=== PATIENT | female | born 1955 | race Caucasian/White ===

== ENCOUNTER 2017-12-05 08:54 | Day surgery (SDC) | payer MEDICARE, MEDICAID ==
[~2017-12-05] VITALS: Ht 172.7 cm; Wt 73.3 kg
[~2017-12-05 08:54] MED LIST: ARIP5TAB20 PO; ASPI81TA53 PO; BUDE10.2 INH; BUSP10TA3 PO; COL100C PO; ESCI10TA54 PO; LEVO75TA7 PO; METF500T6 PO; METO-395 PO; OMEP-50 PO; PER10325T PO; ZOLP10TA5 PO
[2017-12-05 09:12] VITALS: BP 122/59
[2017-12-05] MEDS ORDERED: normal saline 1000ml 1,000 ML IV PRN (09:20)
[2017-12-05 09:41] LABS: BASOPHILS # (AUTO) 0.1 X10'3 (0-0.2); BASOPHILS % (AUTO) 0.5 % (0-1); EOSINOPHILS # (AUTO) 0.3 X10'3 (0-0.9); EOSINOPHILS % (AUTO) 2.1 % (0-6); HEMATOCRIT 38.1 % (35.0-45.0); HEMOGLOBIN 12.8 g/dl (12.0-16.0); LYMPHOCYTES # (AUTO) 3.5 X10'3 (1.1-4.8); LYMPHOCYTES % (AUTO) 25.5 % (21-51); MEAN CORPUSCULAR HGB CONC 33.6 % (33.0-36.5); MEAN CORPUSCULAR VOLUME 86.3 FL (78-98); MEAN PLATELET VOLUME 7.5 FL (7.4-10.4); MONOCYTES # (AUTO) 1.1 X10'3 (0-0.9); MONOCYTES % (AUTO) 7.9 % (2-12); NEUTROPHILS # (AUTO) 8.9 X10'3 (1.8-7.7); PLATELET COUNT 579 X10'3 (140-440); RED BLOOD COUNT 4.41 X10'6 (4.20-5.60); RED CELL DISTRIBUTION WIDTH 16.6 % (11.5-14.5); WHITE BLOOD COUNT 13.9 X10'3 (4.5-11.0)
[2017-12-05] MEDS ORDERED: ARIP5TAB4 PO (10:11)
[2017-12-05] MEDS ORDERED: LIDOcaine 1%/PF 5ML 10 MG/ML VIAL SQ ONE (10:30)
[2017-12-05] MEDS ORDERED: midazolam 2 mg/2 ml injection IV PRN (10:30)
[2017-12-05] MEDS ORDERED: heparin sodium, porcine/PF 100unit/ml 5ML syringe ICATH ONE (10:30)
[2017-12-05] MEDS ORDERED: fentaNYL/PF 50MCG/1 ML 2ML syringe IV PRN (10:30)
[2017-12-05] MEDS ORDERED: heparin sodium, porcine/PF 100unit/ml 5ML syringe ONE (10:37)
[2017-12-05] MEDS ORDERED: midazolam 2 mg/2 ml injection ONE (10:37)
[2017-12-05] MEDS ORDERED: fentaNYL/PF 50MCG/1 ML 2ML syringe ONE (10:37)
[2017-12-05 11:25] VITALS: BP 129/63
[2017-12-05 11:30] VITALS: BP 91/45
[2017-12-05 11:45] VITALS: BP 97/52
[2017-12-05 12:00] VITALS: BP 129/65
[2017-12-05 12:15] VITALS: BP 129/65
== END 2017-12-05 12:35 | disposition home or self-care (01) ==
LOC: SSTAY O 08:54
PROVIDERS: ATTEND Radiology Diagnostic Radiology
DX: C34.92 Malignant neoplasm of unspecified part of left bronchus or lung (principal); J44.9 Chronic obstructive pulmonary disease, unspecified; F41.8 Other specified anxiety disorders; K21.9 Gastro-esophageal reflux disease without esophagitis; I25.10 Atherosclerotic heart disease of native coronary artery without angina pectoris; E11.9 Type 2 diabetes mellitus without complications; E03.9 Hypothyroidism, unspecified; F17.210 Nicotine dependence, cigarettes, uncomplicated; G47.33 Obstructive sleep apnea (adult) (pediatric); M19.90 Unspecified osteoarthritis, unspecified site; J96.10 Chronic respiratory failure, unspecified whether with hypoxia or hypercapnia; Z72.89 Other problems related to lifestyle; Z86.14 Personal history of Methicillin resistant Staphylococcus aureus infection; Z93.0 Tracheostomy status; Z92.21 Personal history of antineoplastic chemotherapy; Z90.89 Acquired absence of other organs; Z90.81 Acquired absence of spleen; Z90.710 Acquired absence of both cervix and uterus; Z90.49 Acquired absence of other specified parts of digestive tract; Z88.5 Allergy status to narcotic agent; Z79.84 Long term (current) use of oral hypoglycemic drugs; Z79.82 Long term (current) use of aspirin; Z88.6 Allergy status to analgesic agent; Z79.891 Long term (current) use of opiate analgesic; Z85.3 Personal history of malignant neoplasm of breast; Z85.71 Personal history of Hodgkin lymphoma; Z98.890 Other specified postprocedural states; Z79.899 Other long term (current) drug therapy
CPT/HCPCS: 36415; 36561; 76937; 77001; 82948; 85025; 99152; 99153; A6219; C1788; C1894; J1642; J2250; J3010; J7030; A4620

== ENCOUNTER 2018-09-08 10:43 | Outpatient (CLI) | payer MEDICARE, MEDICAID ==
[~2018-09-08 10:43] MED LIST changes: +ARIP5TAB4 PO; +METF-950 PO; -METF500T6 PO
== END 2018-09-08 23:59 | disposition home or self-care (01) ==
LOC: CARD DIAG 10:43
PROVIDERS: ATTEND Internal Medicine
DX: I08.8 Other rheumatic multiple valve diseases (principal); J44.9 Chronic obstructive pulmonary disease, unspecified; E11.9 Type 2 diabetes mellitus without complications; C50.919 Malignant neoplasm of unspecified site of unspecified female breast; F17.200 Nicotine dependence, unspecified, uncomplicated; Z90.710 Acquired absence of both cervix and uterus; Z88.5 Allergy status to narcotic agent; Z88.6 Allergy status to analgesic agent; Z79.82 Long term (current) use of aspirin; Z79.899 Other long term (current) drug therapy
CPT/HCPCS: 93306